=== PATIENT | female | born 1975 | race Caucasian/White ===

== ENCOUNTER 2022-01-06 20:30 | Inpatient (IN) | payer MEDICARE, OTHER ==
[~2022-01-06] VITALS: Ht 165.1 cm; Wt 75.6 kg
--- NOTE | 2022-01-06 21:45 | NUR ---
ARRIVAL TO ICU PT ARRIVED VIA EMS GURNEY. MOVED TO ICU BED. PT AWNSERS YES TO HER NAME BUT DOES NOT ANSWER ANY OTHER QUESTIONS OR FOLLOW COMMANDS. PT CONSISTANTLY MOVING SIDE TO SIDE, PULLING AT GOWN AND KUMAR. ORDER RECEIVED FROM DR CALVO FOR RESTRAINTS. KUMAR IN PLACE ON ARRIVAL. KUMAR REMOVED, NEW ONE PLACED AND SAMPLE SENT TO LAB.
[2022-01-06 22:29] LABS: Source, Urine Foley catheter
[2022-01-06 22:32] LABS: Bilirubin, Urine Neg (Neg); Blood, Urine 5+ (Neg); Glucose Qualitative, Urine 2+ (Neg); Ketones, Urine Neg (Neg); Leukocyte Esterase, Urine 3+ (Neg); Nitrite, Urine Neg (Neg); Protein, Urine 1+ (Neg); Specific Gravity, Urine 1.005 (1.003-1.022); Urobilinogen, Urine 2+ (Normal)
[2022-01-06 22:37] LABS: Appearance, Urine Hazy (Clear); Color, Urine Yellow (P-Yellow)
[2022-01-06 22:49] LABS: Bacteria Few /hpf; Squamous Epithelial Cells Few /hpf (Few)
[2022-01-06 22:50] LABS: Red Blood Cells, Urine 25-50 /hpf (0-2)
[2022-01-06 23:04] LABS: Base Excess Venous -3.1 mmol/L; Bicarbonate Venous 21.6 mmol/L (24.0-30.0); PCO2 Venous 34.7 mmHg (38-42)
[2022-01-06 23:29] LABS: BASOPHILS ABSOLUTE AUTO 0.02 K/mm3 (0.00-0.23); BASOPHILS PERCENT AUTO 0 % (0-2); EOSINOPHILS ABSOLUTE AUTO 0.02 K/mm3 (0.00-0.68); EOSINOPHILS PERCENT AUTO 0 % (0-6); Hematocrit 29.5 % (33.0-51.0); Hemoglobin 10.1 g/dL (11.5-16.0); IMMATURE GRAN ABSOLUTE AUTO 0.07 K/mm3 (0.00-0.10); IMMATURE GRAN PERCENT AUTO 1 % (0-1); LYMPHOCYTES ABSOLUTE AUTO 1.68 K/mm3 (0.84-5.20); LYMPHOCYTES PERCENT AUTO 17 % (21-46); MONOCYTES ABSOLUTE AUTO 0.66 K/mm3 (0.16-1.47); MONOCYTES PERCENT AUTO 7 % (4-13); Mean Corpuscular HGB 35.6 pg (26.0-34.0); Mean Corpuscular HGB Conc 34.2 g/dL (31.5-36.5); Mean Corpuscular Volume 104 fL (80-100); Mean Platelet Volume 12.3 fL (9.1-12.4); NEUTROPHILS ABSOLUTE AUTO 7.37 K/mm3 (1.96-9.15); NEUTROPHILS PERCENT AUTO 75 % (41-73); Platelet Count 82 K/mm3 (150-400); RDW Standard Deviation 64.3 fL (35.1-46.3); Red Blood Cell Count 2.84 M/mm3 (3.80-5.20); White Blood Cell Count 9.82 K/mm3 (4.00-11.30)
[2022-01-06 23:52] LABS: Bun/Creatinine Ratio 13.8 (12.0-20.0); Calcium, Blood 7.1 mg/dL (8.5-10.1); Creatinine, Blood 0.51 mg/dL (0.40-1.00); Potassium, Blood 3.1 mmol/L (3.5-5.5)
[2022-01-07 05:35] LABS: BASOPHILS ABSOLUTE AUTO 0.02 K/mm3 (0.00-0.23); BASOPHILS PERCENT AUTO 0 % (0-2); EOSINOPHILS ABSOLUTE AUTO 0.01 K/mm3 (0.00-0.68); EOSINOPHILS PERCENT AUTO 0 % (0-6); Hematocrit 23.6 % (33.0-51.0); Hemoglobin 8.3 g/dL (11.5-16.0); IMMATURE GRAN ABSOLUTE AUTO 0.05 K/mm3 (0.00-0.10); IMMATURE GRAN PERCENT AUTO 1 % (0-1); LYMPHOCYTES ABSOLUTE AUTO 1.59 K/mm3 (0.84-5.20); LYMPHOCYTES PERCENT AUTO 17 % (21-46); MONOCYTES ABSOLUTE AUTO 0.79 K/mm3 (0.16-1.47); MONOCYTES PERCENT AUTO 8 % (4-13); Mean Corpuscular HGB 36.1 pg (26.0-34.0); Mean Corpuscular HGB Conc 35.2 g/dL (31.5-36.5); Mean Corpuscular Volume 103 fL (80-100); Mean Platelet Volume 12.1 fL (9.1-12.4); NEUTROPHILS ABSOLUTE AUTO 7.16 K/mm3 (1.96-9.15); NEUTROPHILS PERCENT AUTO 75 % (41-73); Platelet Count 90 K/mm3 (150-400); RDW Coefficient Variation 16.7 % (11.7-14.2); RDW Standard Deviation 61.5 fL (35.1-46.3); White Blood Cell Count 9.62 K/mm3 (4.00-11.30)
--- NOTE | 2022-01-07 05:36 | NUR ---
PT INTUBATED LAB UNABLE TO GET BLOOD SAMPLE FROM PT. MULTIPLE POWERDILDE PLACEMENTS ATTEMPTED. DR SALDANA NOTIFIED OF THE NEED FOR A CENTRAL LINE. PT GIVEN MULTIPLE DOSES OF ATIVAN D/T NOT BEING ABLE TO HOLD STILL. AFTER PLACEMENT OF CENTRAL LINE, PT NOT ABLE TO PROTECT AIRWAY. DR SALDANA IN ROOM AND DECISION MADE TO INTUBATE. 0432 10MG ETOMIDATE 0433 80MG SUCCINYLCHOLINE 0433 2MG VERSED 0435 INTUBATED. 7.5-24 AT [facility]. PROPOFOL STARTED AT 20MCG/KG/MIN. PT TOLERATED WELL. OGT PLACED AND TO LIS. CHEST XRAY COMPLETED AND VERIFIED. CURRENT GTTS-NS 125ML/HR AND PROPOFOL 40MCG/KG/MIN. KUMAR IN PLACE, DRAINING DARK YELLOW URINE. 200 TOTAL OUTPUT. RECTAL TUBE IN PLACE.
[2022-01-07 06:02] LABS: Albumin, Blood 1.3 g/dL (3.4-5.0); Albumin/Globulin Ratio 0.5 (0.8-1.8); Bilirubin, Total 4.7 mg/dL (0.1-1.0); Bun/Creatinine Ratio 10.5 (12.0-20.0); Calcium, Blood 7.2 mg/dL (8.5-10.1); Creatinine, Blood 0.57 mg/dL (0.40-1.00); Globulin, Blood 2.8 g/dL (2.2-4.0); Magnesium, Blood 1.4 mg/dL (1.6-2.4); Potassium, Blood 3.3 mmol/L (3.5-5.5); Total Protein, Blood 4.1 g/dL (6.4-8.2)
--- NOTE | 2022-01-07 06:20 | NUR ---
UPDATE CALLED DAUGHTER MELINDA TO GIVE UPDATE ON PT. MELINDA UNAVAILABLE AT THIS TIME, TELEPHONE NUMBER PROVIDED TO MELINDA'S .
[2022-01-07 09:59] LABS: Bun/Creatinine Ratio 10.7 (12.0-20.0); Calcium, Blood 7.2 mg/dL (8.5-10.1); Creatinine, Blood 0.56 mg/dL (0.40-1.00); Potassium, Blood 3.6 mmol/L (3.5-5.5)
--- NOTE | 2022-01-07 11:25 | NUR ---
CARE OF PT ASSUMED AT 0700. PT SEDATED ON PROPOFOL AT 40MCG FOR MECH VENT TOLERANCE. PT RESTLESS AND PULLING ON RESTRAINTS, DOES NOT OPEN EYES OR FOLLOW COMMANDS. PT HYPOTENSIVE W MAP >65. ATIVAN 2MG TOTAL GIVEN WITHOUT REDUCTION IN AGITATION. PROPOFOL INCREASED TO 50MCG. DR CLEMONS CONSULTED AND GIVEN FULL UPDATE THIS AM. 40MEQ K+ INFUSING THIS AM, MAG AND CALCIUM GIVEN. CRITICAL PHOS GIVEN TO DR CLEMONS. KPHOS ORDERED AND STARTED; K+ RIDER ON HOLD WHILE KPHOS INFUSING. LEVOPHED STARTED AT 2MCG TO KEEP MAP >60. PRECEDEX STARTED AT 0.3MCG. NS INFUSING AT 125. PT HAS CARLOS BLOOD IN MOUTH W SMALL CLOTS. CARLOS RED BLOOD TO ETT. BLOOD TO OG STOPPED AFTER FLUSH. OGT CLAMPED. OG ADVANCED 10CM AFTER THIS AM CHEST XRAY. THIS AM'S HEPARIN HELD D/T BLEEDING. RECTAL TUBE PATENT W SMALL AMT OF LEAKING. LOW U/O. LACTULOSE CHANGED TO OGT.
[2022-01-07 13:35] LABS: International Normalized Ratio 3.49; Prothrombin Time Results 33.8 Sec (9.7-11.5)
[2022-01-07 13:37] LABS: Bun/Creatinine Ratio 9.6 (12.0-20.0); Calcium, Blood 7.1 mg/dL (8.5-10.1); Creatinine, Blood 0.63 mg/dL (0.40-1.00); Potassium, Blood 4.9 mmol/L (3.5-5.5)
--- NOTE | 2022-01-07 13:58 | NUR ---
LEVOPHED INCREASED TO 10MCG, PROPOFOL DECREASED TO 40MCG, PRECEDEX DECREASED TO 0.2MCG. 75CC U/O TOTAL. DR CLEMONS CALLED AND UPDATED. NS BOLUS ORDERED.
--- NOTE | 2022-01-07 16:20 | NUR ---
DR CLEMONS GIVEN UPDATE. ADDITIONAL LITER OF NS BOLUS ORDERED, FOLLOWED BY NS AT 125. HEPARIN DC'D. LABS ORDERED FOR 1999.
--- NOTE | 2022-01-07 18:39 | NUR ---
PROPOFOL AT 40MCG, PRECEDEX AT 0.2MCG. NO CHANGES TO VENT. BLOODY SECRETIONS CONTINUE. LEVOPHED AT 10MCG TO KEEP MAP >60. 2L TOTAL NS BOLUS GIVEN. ALBUMIN X3 GIVEN. U/O IMPROVED. LABS TO BE DRAWN AT 1999.
--- NOTE | 2022-01-07 19:00 | NUR ---
ASSUMED CARE PT INTUBATED AND SEDATED. AC/VC 16/400/5/40%. NO ASSISTED INSPIRATIONS NOTED. PROPOFOL AND PRECEDEX GTTS INFUSING FOR SEDATION. LEVOPHED GTT INSUING TO KEEP MAP GREATER THAN 65. SEE FLOWSHEET FOR TITRATIONS. OGT CLAMPED. KUMAR PATENT AND DRAINING TO GRAVITY. RECTAL TUBE IN PLACE. SEE ASSESSMENT FOR FULL ASSESSMENT.
[2022-01-07 20:59] LABS: Magnesium, Blood 1.8 mg/dL (1.6-2.4)
--- NOTE | 2022-01-07 22:00 | NUR ---
MD CALLED DURING SHIFT AEROSPACE PHYSIOLOGICAL TECHNICIAN NOTED UNEQUEL PUPILS W/ SLUGGISH RESPONSE. PT GRIMACING W/ ORAL CARE AND WITHDREW ALL EXTREMITIES TO PAIN. CHARGE NURSE CONSULTED AND DESCION MADE TO DECREASE SEDATION. PROPOFOL TITRATED DOWN TO 20MCG/KG/MIN W/ NO CHANGE IN PATIENT NEURO STATUS. PROPOFOL THEN TURNED TO SB. PT THEN BEGAN TO BREATHE OVER THE VENT, AND MOVE EXTREMITIES SPONTANEOUSLY W/ STIMULATION. DR CLEMONS NOTIFIED OF LAB LEVELS. ORDERS RECEIVED. ALSO MADE AWARE OF THE INFORMATION ABOVE. DR CLEMONS STATED HE HAD NOTED IT PREVIOUSLY AND NO NEW ORDERS AT THIS TIME. PT RESTING QUIETLY AND TOLERATING VENT W/ PROPOFOL ON SB W/O STIMULATION.
[2022-01-08 05:03] LABS: BASOPHILS ABSOLUTE AUTO 0.02 K/mm3 (0.00-0.23); BASOPHILS PERCENT AUTO 0 % (0-2); EOSINOPHILS ABSOLUTE AUTO 0.03 K/mm3 (0.00-0.68); EOSINOPHILS PERCENT AUTO 0 % (0-6); Hematocrit 21.1 % (33.0-51.0); Hemoglobin 6.8 g/dL (11.5-16.0); IMMATURE GRAN ABSOLUTE AUTO 0.04 K/mm3 (0.00-0.10); IMMATURE GRAN PERCENT AUTO 1 % (0-1); LYMPHOCYTES ABSOLUTE AUTO 1.32 K/mm3 (0.84-5.20); LYMPHOCYTES PERCENT AUTO 19 % (21-46); MONOCYTES ABSOLUTE AUTO 0.34 K/mm3 (0.16-1.47); MONOCYTES PERCENT AUTO 5 % (4-13); Mean Corpuscular HGB 34.7 pg (26.0-34.0); Mean Corpuscular HGB Conc 32.2 g/dL (31.5-36.5); Mean Platelet Volume 12.8 fL (9.1-12.4); NEUTROPHILS ABSOLUTE AUTO 5.35 K/mm3 (1.96-9.15); NEUTROPHILS PERCENT AUTO 75 % (41-73); Platelet Count 58 K/mm3 (150-400); RDW Coefficient Variation 17.8 % (11.7-14.2); RDW Standard Deviation 69.9 fL (35.1-46.3); Red Blood Cell Count 1.96 M/mm3 (3.80-5.20)
[2022-01-08 05:11] LABS: International Normalized Ratio 3.89; Prothrombin Time Results 37.4 Sec (9.7-11.5)
[2022-01-08 05:13] LABS: Mean Corpuscular Volume 108 fL (80-100)
[2022-01-08 05:14] LABS: Albumin, Blood 2.6 g/dL (3.4-5.0); Albumin/Globulin Ratio 1.3 (0.8-1.8); Bilirubin, Direct 4.4 mg/dL (0.0-0.3); Bilirubin, Indirect 1.3 mg/dL (0.1-0.7); Bilirubin, Total 5.7 mg/dL (0.1-1.0); Bun/Creatinine Ratio 8.6 (12.0-20.0); Calcium, Blood 6.5 mg/dL (8.5-10.1); Creatinine, Blood 0.58 mg/dL (0.40-1.00); Magnesium, Blood 2.1 mg/dL (1.6-2.4); Phosphorus, Blood 3.9 mg/dL (2.5-4.9); Total Protein, Blood 4.6 g/dL (6.4-8.2)
--- NOTE | 2022-01-08 06:43 | NUR ---
SHIFT SUMMARY PT REMAINS INTUBATED AND SEDATED. VENT SETTINGS UNCHANGED T/O NIGHT. SPO2 GREATER THAN 92%. LEVOPHED GTT TO KEEP MAP GREATER THAN 60. PROPOFOL GTT AND PRECEDEX GTT FOR SEDATION. SEDATION VACATION DONE THIS SHIFT. PT DID NOT OPEN EYES, FOLLOW COMMANDS OR PURPOSEFUL MOVEMENT. SEE FLOWSHEET FOR TITRATIONS. OGT CLAMPED. KUMAR PATENT AND DRAINING TO GRAVITY. [address]. RECTAL TUBE IN PLACE. DR SALDANA CALLED REGARDING H/H AND CALCIUM LEVEL. ORDERS RECEIVED.
--- NOTE | 2022-01-08 07:00 | NUR ---
ASSUME CARE: I have assumed care of this patient.
[2022-01-08 07:01] LABS: C DIFFICILE DNA NEGATIVE (Negative)
[2022-01-08 13:21] LABS: Hematocrit 25.2 % (33.0-51.0); Hemoglobin 8.4 g/dL (11.5-16.0)
--- NOTE | 2022-01-08 16:02 | NUR ---
CARDIOVERSION: 1529 - timout called; Emely, RT, RN x 2, and RT at bedside. 1531 - 2 mg versed pushed 1532 - synchronized cardioversion at 50 J with refractory aflutter in 180's 1535 - 150mg amiodarone pushed, 2mg versed pushed 1537 - 25 mcg fentanyl pushed 1539 - synchronized cardioversion at 200 J with successful conversion into sinus tachycardia
--- NOTE | 2022-01-08 19:35 | NUR ---
ASSUMED CARE OF PATIENT AT THIS TIME FROM PREVIOUS RN. ALLERGIES, LINES, PLAN OF CARE, AND PATIENT STATUS REVIEWED AT BEDSIDE. PATIENT INTUBATED AND SEDATED ON PRECEDEX AT 0.4. LEVOPHED AT 2, AND ABX INFUSING. PATIENT VSS.
--- NOTE | 2022-01-08 19:38 | NUR ---
SHIFT SUMMARY: NEURO: left pupil irregular and fixed at 5mm. right pupil sliggishly reactive. Occulocephalic and corneals intact. Pt moves all extremities in what appears to be an attempt to reposition. Does not open eyes or follow commands. Propofol stopped this AM, precedex titrated for sedation. CARDIAC: sinus rhythm to sinus ilda with precedex. Levophed at 2 for low systolic pressures. Discussed with Dr Martínez. RESPIRATORY: thin, white secretions noted. Tolerating vent well. AC/VC 16/400/35/5% GI/: rectal tube output of 1100 mls. Brantley patent and draining. Tube feeds initiated at 20 mls/hr. SKIN: petechiae noted to BUE. Excoriation to adan area.
[2022-01-09 04:50] LABS: International Normalized Ratio 3.06; Prothrombin Time Results 29.9 Sec (9.7-11.5)
[2022-01-09 05:01] LABS: Albumin, Blood 2.2 g/dL (3.4-5.0); Anion Gap 8 mmol/L (6-16); Blood Urea Nitrogen 5 mg/dL (8-24); Bun/Creatinine Ratio 8.1 (12.0-20.0); CO2, Blood 18 mmol/L (21-32); Chloride, Blood 126 mmol/L (98-108); Creatinine, Blood 0.62 mg/dL (0.40-1.00); Glomerular Filtration Rate 113 (60-); Glucose, Blood 214 mg/dL (70-99); Magnesium, Blood 1.7 mg/dL (1.6-2.4); Phosphorus, Blood 2.2 mg/dL (2.5-4.9); Potassium, Blood 3.5 mmol/L (3.5-5.5); Sodium, Blood 152 mmol/L (136-145)
[2022-01-09 06:47] LABS: BASOPHILS ABSOLUTE AUTO 0.03 K/mm3 (0.00-0.23); BASOPHILS PERCENT AUTO 0 % (0-2); EOSINOPHILS ABSOLUTE AUTO 0.04 K/mm3 (0.00-0.68); EOSINOPHILS PERCENT AUTO 1 % (0-6); Hematocrit 26.4 % (33.0-51.0); Hemoglobin 8.8 g/dL (11.5-16.0); Mean Corpuscular HGB 33.8 pg (26.0-34.0); Mean Corpuscular HGB Conc 33.3 g/dL (31.5-36.5); RDW Coefficient Variation 22.7 % (11.7-14.2); RDW Standard Deviation 83.4 fL (35.1-46.3); White Blood Cell Count 7.99 K/mm3 (4.00-11.30)
[2022-01-09 06:57] LABS: IMMATURE GRAN ABSOLUTE AUTO 0.03 K/mm3 (0.00-0.10); IMMATURE GRAN PERCENT AUTO 0 % (0-1); LYMPHOCYTES ABSOLUTE AUTO 1.09 K/mm3 (0.84-5.20); LYMPHOCYTES PERCENT AUTO 14 % (21-46); MONOCYTES ABSOLUTE AUTO 0.25 K/mm3 (0.16-1.47); MONOCYTES PERCENT AUTO 3 % (4-13); Mean Corpuscular Volume 102 fL (80-100); Mean Platelet Volume 13.7 fL (9.1-12.4); NEUTROPHILS ABSOLUTE AUTO 6.55 K/mm3 (1.96-9.15); NEUTROPHILS PERCENT AUTO 82 % (41-73)
--- NOTE | 2022-01-09 12:01 | NUR ---
REASSESSMENT PT REMAINS INTUBATED AND SEDATED WITH PRECEDEX. PRECEDEX HAD TO BE TITRATED UP AND PRN FENTANYL AND ATIVAN GIVEN PT HAS BEEN VERY RESTLESS, GRIMACING, MOVING AROUND SO MUCH IN BED THAT SHE DISLODGED HER RECTAL TUBE. SPOKE WITH DR. LLOYD AND HE GAVE OK TO INCREASE FREQUENCY OF FENTANYL TO HELP WITH PT'S AGITATION AND DISCOMFORT. FIO2 ON THE VENT HAD TO BE INCREASED THROUGHOUT THE MORNING PT WAS GETTING MORE AGITATED SHE KEPT DROPPING HER SATS TO THE MID 80S. FIO2 GOT UP TO 50%, BUT NOW WITH PT CALMER, FIO2 IS DOWN TO 40%. PT SB/SR WITH RATE IN THE UPPER 50S AND LOW 60S. BP REMAINS STABLE WITH LEVOPHED OFF. RECTAL TUBE REPLACED AFTER PT DISLODGED IT. KUMAR DRAINING DARK YELLOW URINE. SKIN PROTECTANT CREAM APPLIED TO PT'S SOLO AREA IT IS RED AND IRRITATED. BOTH PT'S ELBOWS ARE RED, BUT BLANCHABLE. TURNING PT EVERY 2 HOURS, BUT PT KEEPS WIGGLING OFF THE PILLOWS. PILLOWS ALSO PLACED BETWEEN HER LEGS TO RELIEVE PRESSURE, BUT PT QUICKLY KICKS THEM OUT OF THE WAY.
--- NOTE | 2022-01-09 15:43 | NUR ---
REASSESSMENT PT CONTINUES TO BE RESTLESS AND REQUIRING PRN MEDICATIONS TO ASSIST WITH SEDATION. HER LUNGS HAVE BEEN COARSE AT TIMES THIS AFTERNOON, BUT CLEAR WITH SUCTIONING. FIO2 AT 35% WITH SPO2 90%. LEVOPHED REMAINS OFF. CONTINUING TO MONITOR.
--- NOTE | 2022-01-09 17:17 | NUR ---
SHIFT SUMMARY PT INTUBATED AND SEDATED. PT EASILY AGITATED THIS SHIFT AND DESATS WITH SLOW RECOVERY WHEN AGITATED SO PRN MEDICATIONS USED ADJUNCT TO SEDATION. MODERATE AMT OF LEMUS/GREEN SPUTUM. FIO2 CURRENTLY AT 40%. SR/SB WITH RATE INT HE 50S AND 60S, BP STABLE WITHOUT LEVOPHED. TOLERATING TUBE FEED. RECTAL TUBE WITH ABOUT 500ML OF LIQUID STOOL. DARK YELLOW URINE IN KUMAR, SEE I/O. MULTIPLE ATTEMPTS THROUGHOUT THE DAY TO USE PILLOWS TO RELIEVE PRESSURE POINTS, BUT PT FREQUENTLY WIGGLES HERSELF OFF OF THE PILLOWS OR KICKS THEM AWAY.
--- NOTE | 2022-01-09 19:12 | NUR ---
ASSUMED CARE OF PATIENT AT THIS TIME UPDATED ON PATIENT PLAN OF CARE AND COURSE OF TREATMENT DURING DAY, ALLERGIES, LINES, AND TUBES REVIEWED AT BEDSIDE.
[2022-01-09 20:19] LABS: BASOPHILS ABSOLUTE AUTO 0.03 K/mm3 (0.00-0.23); BASOPHILS PERCENT AUTO 0 % (0-2); EOSINOPHILS ABSOLUTE AUTO 0.05 K/mm3 (0.00-0.68); EOSINOPHILS PERCENT AUTO 1 % (0-6); Hematocrit 28.6 % (33.0-51.0); Hemoglobin 9.9 g/dL (11.5-16.0); IMMATURE GRAN ABSOLUTE AUTO 0.07 K/mm3 (0.00-0.10); IMMATURE GRAN PERCENT AUTO 1 % (0-1); LYMPHOCYTES ABSOLUTE AUTO 1.28 K/mm3 (0.84-5.20); LYMPHOCYTES PERCENT AUTO 13 % (21-46); MONOCYTES ABSOLUTE AUTO 0.34 K/mm3 (0.16-1.47); MONOCYTES PERCENT AUTO 3 % (4-13); Mean Corpuscular HGB 35.2 pg (26.0-34.0); Mean Corpuscular HGB Conc 34.6 g/dL (31.5-36.5); Mean Corpuscular Volume 102 fL (80-100); NEUTROPHILS ABSOLUTE AUTO 8.43 K/mm3 (1.96-9.15); NEUTROPHILS PERCENT AUTO 83 % (41-73); RDW Coefficient Variation 22.9 % (11.7-14.2); RDW Standard Deviation 84.2 fL (35.1-46.3); Red Blood Cell Count 2.81 M/mm3 (3.80-5.20)
[2022-01-09 20:26] LABS: Platelet Count 21 K/mm3 (150-400)
[2022-01-09 20:33] LABS: Bun/Creatinine Ratio 9.1 (12.0-20.0); Creatinine, Blood 0.55 mg/dL (0.40-1.00); Magnesium, Blood 1.5 mg/dL (1.6-2.4); Potassium, Blood 4.1 mmol/L (3.5-5.5)
--- NOTE | 2022-01-09 23:07 | NUR ---
PATIENT TEMPERATURE 95.5 WITH TEMPORAL THERMOSCAN, ESOPHAGEAL PROBE INSERTED, TEMPERATURE READING 94.4. ZOFIA HUGGER APPLIED. PATIENT HAD SUDDEN DROP OF BLOOD PRESSURE, REQUIRING RESTARTING PRESSERS. HR DROPPED TO 40 AND END TITAL DROPPED TO 10. DR LLOYD NOTIFIED. ORDERS RECIEVED FOR ATROPINE, EKG, EPINEPHRINE, AND LABS. MAG AND CALCIUM LOW, BLOOD SUGAR HIGH. DR LLOYD NOTIFIED AND ORDERS RECIEVED FOR MAGNESIUM, CALCIUM, DC D5 GTT, AND VANCOMYCIN STARTED. PATIENT NOW NORMOTHERMIC.
--- NOTE | 2022-01-10 03:22 | NUR ---
CBG AT 0020 403. PREMA CABRERA NOTIFIED. ORDERS RECIEVED TO START INSULIN GTT
[2022-01-10 04:44] LABS: Albumin, Blood 1.9 g/dL (3.4-5.0); Anion Gap 13 mmol/L (6-16); Blood Urea Nitrogen 8 mg/dL (8-24); Bun/Creatinine Ratio 11.2 (12.0-20.0); CO2, Blood 14 mmol/L (21-32); Calcium, Blood 7.8 mg/dL (8.5-10.1); Chloride, Blood 124 mmol/L (98-108); Creatinine, Blood 0.71 mg/dL (0.40-1.00); Glomerular Filtration Rate 107 (60-); Glucose, Blood 355 mg/dL (70-99); International Normalized Ratio 2.51; Magnesium, Blood 1.9 mg/dL (1.6-2.4); Phosphorus, Blood 1.4 mg/dL (2.5-4.9); Potassium, Blood 3.4 mmol/L (3.5-5.5); Prothrombin Time Results 24.8 Sec (9.7-11.5); Sodium, Blood 151 mmol/L (136-145)
[2022-01-10 05:45] LABS: BASOPHILS ABSOLUTE AUTO 0.05 K/mm3 (0.00-0.23); BASOPHILS PERCENT AUTO 0 % (0-2); EOSINOPHILS ABSOLUTE AUTO 0.01 K/mm3 (0.00-0.68); EOSINOPHILS PERCENT AUTO 0 % (0-6); Hematocrit 28.5 % (33.0-51.0); Hemoglobin 9.3 g/dL (11.5-16.0); IMMATURE GRAN PERCENT AUTO 1 % (0-1); LYMPHOCYTES ABSOLUTE AUTO 1.71 K/mm3 (0.84-5.20); LYMPHOCYTES PERCENT AUTO 12 % (21-46); MONOCYTES PERCENT AUTO 4 % (4-13); Mean Corpuscular HGB 33.8 pg (26.0-34.0); Mean Corpuscular HGB Conc 32.6 g/dL (31.5-36.5); Mean Corpuscular Volume 104 fL (80-100); NEUTROPHILS ABSOLUTE AUTO 11.66 K/mm3 (1.96-9.15); NEUTROPHILS PERCENT AUTO 83 % (41-73); RDW Coefficient Variation 22.7 % (11.7-14.2); RDW Standard Deviation 85.3 fL (35.1-46.3); Red Blood Cell Count 2.75 M/mm3 (3.80-5.20); White Blood Cell Count 14.13 K/mm3 (4.00-11.30)
[2022-01-10 05:50] LABS: Mean Platelet Volume 13.8 fL (9.1-12.4); Platelet Count 33 K/mm3 (150-400)
--- NOTE | 2022-01-10 05:50 | NUR ---
AT MIDNIGHT, PATIENT BLOOD GLUCOSE 403, NOTIFIED DR LLOYD, INSULIN GTT STARTED. SWITCHED PATIENT TO EPINEPHRINE GTT BUT NOT VERY EFFECTIVE TO KEEP MAP >65. NOTIFIED DR LLOYD AND RECEIVED ORDERS TO KEEP EPI GTT AT MAX OF 5, START LEVO IF NEEDED, AND IF LEVO REACHES 12, START VASOPRESSIN. PATIENT PLATELETS 33, MD AWARE. NO ORDERS. CHEST XRAY SHOWS WORSENING PNEUMONIA. PATIENT NOT ON SEDATION. RECEIVED 2 PRN DOSES OF ATIVAN. SEE EMAR FOR MORE INFORMATION. PATIENT NOT FOLLOWING COMMANDS, KUMAR OUTPUT 200 OVERNIGHT. K+ 3.4 THIS AM, ORDERS RECEIVED FOR K+ REPLACEMENT.
--- NOTE | 2022-01-10 10:17 | NUR ---
PT INTUBATED, NO SEDATION. OPENS EYE'S ON COMMAND, LAMB ON COMMAND, AND NODS YES AND NO TO QUESTIONS. FENTANYL GIVEN PT NODS YES TO PAIN. DR. LLOYD CHANGED PEEP TO 8. TITRATING LEVOPHED AND EPI. ON INSULIN GTT. WILL BE GOING FOR CHEST CT. PT HAS MOD AMT OF GREEN SECRETIONS FROM ETT.
[2022-01-10 12:41] LABS: Vancomycin, Trough 30.3 ug/mL (5.0-10.0)
--- NOTE | 2022-01-10 12:52 | NUR ---
PT TAKEN TO CT. PROPOFOL STARTED BEFORE CT DUE TO RESTLESSNESS DESPITE USING FENTANYL AND ATIVAN. PT CAN DRAW LEGS UP IN THE BED CLOSE TO ETT. PT APPEARS MORE COMFORTABLE WITH PROPOFOL FOR SEDATION.
--- NOTE | 2022-01-10 13:43 | NUR ---
Echocardiogram completed.
--- NOTE | 2022-01-10 18:13 | NUR ---
SUMMARY PT INTUBATED AND LIGHTLY SEDATED WITH PROPOFOL. WILL OPEN EYE'S ON COMMAND AND LAMB. PT WILL MOVE SELF OFF OF PILLOWS WHEN REPOSITIONED. CAN PULL LEGS UP CLOSE TO ETT. PEEP DECREASED TO 5 AND FIO2 DOWN TO 40%. SECRETIONS FROM ETT HAVE SLOWED AND ARE YELLOW NOW INSTEAD OF GREEN. TITRATING LEVOPHED AND EPI GTT'S. INSULIN GTT OF AND NOW COVERING WITH SLIDING SCALE. DR. LLOYD WANTS GLUCOSE CHECKED Q1-2 HRS UNTIL STABLE. ETT OUT 2CM BY RT TODAY PER DR. LLOYD. CT OF CHEST DONE. NO OTHER CHANGES.
[2022-01-11 04:56] LABS: BASOPHILS ABSOLUTE AUTO 0.05 K/mm3 (0.00-0.23); BASOPHILS PERCENT AUTO 1 % (0-2); EOSINOPHILS ABSOLUTE AUTO 0.05 K/mm3 (0.00-0.68); EOSINOPHILS PERCENT AUTO 1 % (0-6); Hematocrit 24.4 % (33.0-51.0); IMMATURE GRAN ABSOLUTE AUTO 0.12 K/mm3 (0.00-0.10); IMMATURE GRAN PERCENT AUTO 1 % (0-1); LYMPHOCYTES PERCENT AUTO 16 % (21-46); MONOCYTES ABSOLUTE AUTO 1.01 K/mm3 (0.16-1.47); MONOCYTES PERCENT AUTO 11 % (4-13); Mean Corpuscular HGB 34.8 pg (26.0-34.0); Mean Corpuscular HGB Conc 32.8 g/dL (31.5-36.5); Mean Corpuscular Volume 106 fL (80-100); NEUTROPHILS ABSOLUTE AUTO 6.65 K/mm3 (1.96-9.15); NEUTROPHILS PERCENT AUTO 71 % (41-73); RDW Coefficient Variation 22.6 % (11.7-14.2); RDW Standard Deviation 87.4 fL (35.1-46.3); White Blood Cell Count 9.38 K/mm3 (4.00-11.30)
[2022-01-11 05:08] LABS: Mean Platelet Volume 13.6 fL (9.1-12.4); Platelet Count 18 K/mm3 (150-400)
[2022-01-11 05:12] LABS: Alanine Aminotransfer (ALT/SGP 25 U/L (12-78); Albumin, Blood 1.7 g/dL (3.4-5.0); Albumin/Globulin Ratio 0.8 (0.8-1.8); Alk Phos 122 U/L (50-136); Anion Gap 12 mmol/L (6-16); Aspartate Aminotrans (AST/SGOT 31 U/L (12-37); Bilirubin, Total 8.8 mg/dL (0.1-1.0); Blood Urea Nitrogen 10 mg/dL (8-24); Bun/Creatinine Ratio 11.8 (12.0-20.0); CO2, Blood 14 mmol/L (21-32); Calcium, Blood 7.6 mg/dL (8.5-10.1); Chloride, Blood 122 mmol/L (98-108); Creatinine, Blood 0.85 mg/dL (0.40-1.00); Globulin, Blood 2.2 g/dL (2.2-4.0); Glomerular Filtration Rate 87 (60-); Glucose, Blood 313 mg/dL (70-99); Potassium, Blood 4.4 mmol/L (3.5-5.5); Sodium, Blood 148 mmol/L (136-145); Total Protein, Blood 3.9 g/dL (6.4-8.2); Vancomycin, Random 19.9 ug/mL
--- NOTE | 2022-01-11 06:12 | NUR ---
SHIFT SUMMARY: NO ACUTE CHANGES THIS SHIFT. PT HAD FREQUENT EPISODES OF COUGHING AND MODERATES AMOUNT OF SECRETIONS OUT OF ETT THAT CORRESPONDED WITH PHYSIOTHERAPY. AT 0400 PT BECAME TACHYPNEIC (35-37) AND LOOKED AGGITATED R/T REPOSITIONING/ROLL; PT MEDICATED WITH FENTANYL, ATIVAN AND PROPOFOL GTT INCREASED TO 30 MCG. PT RR FINALLY SETTLED BACK TO 22-26 RANGE THAT SHE WAS ON WHEN THE SHIFT STARTED. PT REMAINS SETTLED AND NO NEW EPISODES HAVE OCCURED. PT HAD CHG BATH AND COMPLETE BED LINEN CHANGE THIS SHIFT. LOW URINE OUTPUT THIS SHIFT WITH VERY TEA COLORED URINE. RECTAL TUBE HAD 1500 ML OUTPUT THIS SHIFT. WILL CONTINUE TO MONITOR UNTIL ONCOMING RN ARRIVES.
--- NOTE | 2022-01-11 18:32 | NUR ---
JESSICA PT INTUBATED AND SEDATED WITH PROPOFOL. ON SEDATION VACATION STARTING THIS AFTERNOON. PT IS TOLERATING THE VENT OFF OF PROPOFOL, NOT WAKING COMPLETELY UP YET. WILL TRY TO OPEN EYE'S TO VOICE. GOT ONE UNIT OF PLATELETS. TITRATED OFF EPI GTT. LEVOPHED ON AT 6 STILL. SODIUM BICARB GTT ADDED TODAY. LOW GRADE FEVER, FAN ON. NO OTHER CHANGES THIS SHIFT.
[2022-01-12 05:07] LABS: Hematocrit 21.9 % (33.0-51.0); Hemoglobin 7.5 g/dL (11.5-16.0); Mean Corpuscular HGB 35.2 pg (26.0-34.0); Mean Corpuscular HGB Conc 34.2 g/dL (31.5-36.5); Mean Corpuscular Volume 103 fL (80-100); Mean Platelet Volume 11.8 fL (9.1-12.4); RDW Coefficient Variation 21.5 % (11.7-14.2); RDW Standard Deviation 79.7 fL (35.1-46.3); Red Blood Cell Count 2.13 M/mm3 (3.80-5.20); White Blood Cell Count 8.55 K/mm3 (4.00-11.30)
[2022-01-12 05:20] LABS: Platelet Count 27 K/mm3 (150-400)
[2022-01-12 05:39] LABS: Albumin, Blood 1.5 g/dL (3.4-5.0); Albumin/Globulin Ratio 0.7 (0.8-1.8); Bilirubin, Direct 8.6 mg/dL (0.0-0.3); Bilirubin, Indirect 2.1 mg/dL (0.1-0.7); Bilirubin, Total 10.7 mg/dL (0.1-1.0); Globulin, Blood 2.3 g/dL (2.2-4.0); Total Protein, Blood 3.8 g/dL (6.4-8.2)
[2022-01-12 05:48] LABS: BAND PERCENT MAN 8 % (0-8); BASOPHILS PERCENT MAN 0 % (0-2); EOSINOPHILS PERCENT MAN 0 % (0-6); LYMPHOCYTES ABSOLUTE MAN 0.94 K/mm3 (0.84-5.20); LYMPHOCYTES PERCENT MAN 11 % (21-46); METAMYELOCYTE ABSOLUTE MAN 0.08 K/mm3 (0.00-0.00); METAMYELOCYTE PERCENT MAN 1 % (0-0); MONOCYTES ABSOLUTE MAN 0.59 K/mm3 (0.16-1.47); MONOCYTES PERCENT MAN 7 % (4-13); NEUTROPHILS ABSOLUTE MAN 6.92 K/mm3 (1.96-9.15); SEG NEUTROPHILS PERCENT MAN 73 % (41-73); TOTAL CELLS COUNTED 100
--- NOTE | 2022-01-12 07:25 | NUR ---
SHIFT SUMMARY: PT IS INTUBATED AND NOT SEDATED FOR THE ENTIRETY OF THE SHIFT. VENT SETTINGS AC/VC 16/460/5.0/50%; SPO2 96< AND RR 28-33. PT LUNG SOUNDS ARE COARSE WITH SLIGHT RHONCI NOTED. PT COUGHING WITH REPOSITIONING. ORAL CAVITY BLEEDING THROUGHOUT THE SHIFT ON GUMS AND LOWER LIP; CRITICAL PLT OF 27 THIS MORNING. PT HAS BEEN SINUS TACH WITH HR 110'S, AND SBP 90-110'S; LEVO GTT 6 MCG FOR THE WHOLE SHIFT. PT HYPOACTIVE BS IN ALL FOUR QUADRANTS WITH OGT INFUSING PIVOT @ 35 MLS/HR. PT HAS A RECTAL TUBE IN PLACE THAT IS PATENT AND DRAINING TO GRAVITY. AT ABOUT 0600 THIS RN OBSERVED BLOOD/BLOOD CLOTS IN STOOL. EVA UPDATED ON CHANGE AND ORDERS FOR CBC @ 1100. PT HAS COOL EXTREMITIES; VERY EDEMATOUS IN UPPER EXTREMITIES THAT HAS PROGRESSED INTO WEEPING THIS MORNING. PT BS WERE DECREASING THROUHGOUT THIS SHIFT AND DROPPED TO THE 70'S; LLOYD NOTIFIED AND ORDERS FOR D5 INFUSING RECIEVED. PT MOST RECENT BLOOD SUGARS NOW IN THE 120'S. PT MOTHER CALLED LATE LAST NIGHT AND WAS UPDATED ON PT'S CURRENT STATUS AND ALL QUESTIONS WERE ANSWERED AT THIS TIME. BEDSIDE REPORT GIVEN TO KEVIN VILLALOBOS.
[2022-01-12 08:03] LABS: Bun/Creatinine Ratio 14.3 (12.0-20.0); Calcium, Blood 7.3 mg/dL (8.5-10.1); Creatinine, Blood 0.7 mg/dL (0.40-1.00); Potassium, Blood 4.7 mmol/L (3.5-5.5)
[2022-01-12 08:58] LABS: Magnesium, Blood 1.2 mg/dL (1.6-2.4); Phosphorus, Blood 2.4 mg/dL (2.5-4.9)
--- NOTE | 2022-01-12 09:32 | NUR ---
ASSUMED CARE PT IS INTUBATED AT 16/460/5/50%; SPO2 >92%. MAP >65. LEVOPHED AT 6MCG; PT IS OFF SEDATION. PT HAS FIXED LEFT PUPIL THAT WAS THERE FOR A FEW DAYS PER OFF GOING RN. PT GRIMACES TO NOXIOUS STIMULI. PETECHIAE/PURPURA SCATTERED T/O. OOZING FROM OLD IV'S. BLOOD NOTED IN ORAL SECRETIONS AND RECTAL TUBE. CENTRAL LINE HAS DISCOLORATION AND REDNESS AROUND INSERTION SITE. DR LLOYD AWARE PER OFFGOING RN. SIGNIFICANT EDEMA NOTED IN BUE/BLE. COARSE LUNG SOUNDS.
[2022-01-12 11:22] LABS: Hemoglobin 7.2 g/dL (11.5-16.0); Mean Corpuscular HGB 34.3 pg (26.0-34.0); Mean Corpuscular HGB Conc 32.7 g/dL (31.5-36.5); Mean Corpuscular Volume 105 fL (80-100); Mean Platelet Volume 12.9 fL (9.1-12.4); RDW Coefficient Variation 21.9 % (11.7-14.2); RDW Standard Deviation 81.2 fL (35.1-46.3); White Blood Cell Count 8.56 K/mm3 (4.00-11.30)
[2022-01-12 11:52] LABS: Vancomycin, Trough 26.8 ug/mL (5.0-10.0)
[2022-01-12 12:04] LABS: Platelet Count 23 K/mm3 (150-400)
[2022-01-12 12:22] LABS: BASOPHILS PERCENT MAN 0 % (0-2); EOSINOPHILS ABSOLUTE MAN 0.08 K/mm3 (0.00-0.68); EOSINOPHILS PERCENT MAN 1 % (0-6); LYMPHOCYTES ABSOLUTE MAN 1.62 K/mm3 (0.84-5.20); LYMPHOCYTES PERCENT MAN 19 % (21-46); MONOCYTES ABSOLUTE MAN 1.02 K/mm3 (0.16-1.47); MONOCYTES PERCENT MAN 12 % (4-13); MYELOCYTE ABSOLUTE MAN 0.25 K/mm3 (0.00-0.00); MYELOCYTE PERCENT MAN 3 % (0-0); NEUTROPHILS ABSOLUTE MAN 5.56 K/mm3 (1.96-9.15); SEG NEUTROPHILS PERCENT MAN 65 % (41-73); TOTAL CELLS COUNTED 100
--- NOTE | 2022-01-12 15:06 | NUR ---
UPDATE WARM RED AREA IN LEFT UPPER ARM NOTED. NON-BLANCHEABLE.
--- NOTE | 2022-01-12 17:04 | NUR ---
SHIFT SUMMARY PT IS INTUBATED AT 16/460/5/40% W/ SPO2 >92%; MAP >65. LEVOPHED 6MCG. MADE SMALL MOVEMENTS TO PAINFUL STIMULI THIS MORNING AND SEEMS TO BE MORE REACTIVE, ESPECIALLY W/ ORAL CARE BY THIS NOTE. 2400ML OUT PER RECTAL TUBE W/ BLOODY OUTPUT AT BEGINNING OF SHIFT AND SMALL AMOUNTS OF RANDOM CLOTS IN THE AFTERNOON. NEEDED TO SUCTION T/O DAY D/T BLEEDING FROM MOUTH. PETECHIAE SCATTERED T/O. SIGNIFICANT REDNESS AND WARMTH IN LEFT UPPER ARM (SEE CHART). LEFT PUPIL FIXED.
[2022-01-12 17:20] LABS: Hematocrit 22.8 % (33.0-51.0); Hemoglobin 7.4 g/dL (11.5-16.0)
[2022-01-13 04:32] LABS: BASOPHILS ABSOLUTE AUTO 0.02 K/mm3 (0.00-0.23); BASOPHILS PERCENT AUTO 0 % (0-2); EOSINOPHILS ABSOLUTE AUTO 0.07 K/mm3 (0.00-0.68); EOSINOPHILS PERCENT AUTO 1 % (0-6); Hematocrit 21.5 % (33.0-51.0); IMMATURE GRAN ABSOLUTE AUTO 0.29 K/mm3 (0.00-0.10); IMMATURE GRAN PERCENT AUTO 3 % (0-1); LYMPHOCYTES ABSOLUTE AUTO 2.14 K/mm3 (0.84-5.20); LYMPHOCYTES PERCENT AUTO 21 % (21-46); MONOCYTES ABSOLUTE AUTO 1.37 K/mm3 (0.16-1.47); MONOCYTES PERCENT AUTO 13 % (4-13); Mean Corpuscular HGB 34.1 pg (26.0-34.0); Mean Corpuscular HGB Conc 32.6 g/dL (31.5-36.5); Mean Corpuscular Volume 105 fL (80-100); NEUTROPHILS ABSOLUTE AUTO 6.54 K/mm3 (1.96-9.15); NEUTROPHILS PERCENT AUTO 63 % (41-73); RDW Coefficient Variation 21.6 % (11.7-14.2); RDW Standard Deviation 80.8 fL (35.1-46.3); Red Blood Cell Count 2.05 M/mm3 (3.80-5.20); White Blood Cell Count 10.43 K/mm3 (4.00-11.30)
[2022-01-13 04:48] LABS: Platelet Count 20 K/mm3 (150-400)
[2022-01-13 04:54] LABS: Alanine Aminotransfer (ALT/SGP 27 U/L (12-78); Albumin, Blood 1.3 g/dL (3.4-5.0); Albumin/Globulin Ratio 0.5 (0.8-1.8); Alk Phos 105 U/L (50-136); Anion Gap 8 mmol/L (6-16); Aspartate Aminotrans (AST/SGOT 45 U/L (12-37); Bilirubin, Direct 8.9 mg/dL (0.0-0.3); Bilirubin, Indirect 2.2 mg/dL (0.1-0.7); Bilirubin, Total 11.1 mg/dL (0.1-1.0); Blood Urea Nitrogen 11 mg/dL (8-24); CO2, Blood 19 mmol/L (21-32); Calcium, Blood 7.4 mg/dL (8.5-10.1); Chloride, Blood 121 mmol/L (98-108); Creatinine, Blood 0.79 mg/dL (0.40-1.00); Globulin, Blood 2.6 g/dL (2.2-4.0); Glomerular Filtration Rate 95 (60-); Glucose, Blood 91 mg/dL (70-99); Magnesium, Blood 1.8 mg/dL (1.6-2.4); Phosphorus, Blood 2.8 mg/dL (2.5-4.9); Sodium, Blood 148 mmol/L (136-145); Total Protein, Blood 3.9 g/dL (6.4-8.2)
--- NOTE | 2022-01-13 05:38 | NUR ---
END OF SHIFT SUMMARY START OF SHIFT PT WAS GETTING AN EEG PLACED. AFTER PLACEMENT THE INSOLE BUFFER STATED THERE WAS TOO MUCH ARTIFACT AFTER CLOSE INSPECTION NOTICED PT WAS SHIVERING. CALLED MD MARSHALL TO DICUSS ISSUE HE STATED WE WILL PARALIZE. I QUESTION THE PARALITIC BECAUSE PT IS NOT SEDATED AFTER FURTHER DISCUSSION I AGREED. FORTANTLY NO ADVERS EFFECTS NOTED AFTER 40MG DENA PUSH WE WERE ABLE TO GET EEG. PT IS CURRENTLY AT 3MCG OF LEVO AND MAP IS>65. SHE IS AT GOAL FOR TUBE FEED AND HAS RECTAL TUB IN PLACE. HER STOOLS ARE A CREAM COLOR. AFTER SPEEKING TO MOTHER FOUND OUT PT HAS HAD MUITBLE ABD SURGERYS AND MOST OF BOWEL HAS BEEN REMOVED. PT IS STILL ON SAME VENT SETTINGS. NEURO PT HAS A DIALATED AND FIX LT PUPIL AND RT IS 5 AND BRISK. PT LIPS ARE CONTINUING TO SWELL. PT ALSO HAS SYMPTOMS OF HER LOW PLATELETS SHES BEEN OZING FROM MOUTH AND IV SIGHTS. SHE HAS SCATTERED PATECIA. HER RECTAL AREA IS SIGNIFICANTLY EXCORIATED AND BLEEDING PT TURNED Q2
--- NOTE | 2022-01-13 10:23 | NUR ---
SHIFT ASSESSMENT ASSUMED CARE OF PT @ 0700. PT INTUBATED, OFF SEDATION. LEVOPHED ON SB. NOT RESPONDING TO COMMANDS, FAINTLY PULLS AWAY TO NOXIOUS STIMULI. L PUPIL FIXED, RIGHT GAZE IN BOTH EYES. VENT [id number]-06/460/35/5 c SATS >90%. TF INFUSING VIA OGT @ GOAL RATE. RECTAL TUBE DRAINING WHAT APPEARS TO BE UNDIGESTED TF. KUMAR CATH PATENT, DRAINING DARK VAISHALI URINE. WILL CONTINUE TO MONITOR CLOSELY.
--- NOTE | 2022-01-13 18:17 | NUR ---
SHIFT SUMMARY PT REMAINS INTUBATED, OFF SEDATION. NO CHANGES TO NEURO STATUS. RESTRAINTS DC'D PT NOT MOVING/ RESPONDING. VENT SETTINGS- VCA-15/400/35/5 c SATS >90%. LS REMAIN COARSE, MODERATE AMNT OF SECRETIONS VIA ETT. OGT c TF @ GOAL RATE. RECTAL TUBE DRAINING WHAT APPEARS TO BE UNDIGESTED TF. KUMAR CATH DRAINING DARK VAISHALI URINE. PT REMAINS OFF LEVOPHED. PALLIATIVE CARE FOLLOWING UP ON PATIENT, WILL CONTACT NEXT OF KIN TO UPDATE ON SEVERITY OF CONDITION. NO OTHER CHANGES NOTED. REPORT TO BE GIVEN TO ONCOMING NURSE.
--- NOTE | 2022-01-13 19:02 | NUR ---
Spoke to pt's mom Jeanine this evening. She tells me she is prepared and expecting that pt will not recover. She shared at length many of the issues the pt has experienced through the past several years. She states the pt has 2 children, one is 23 and lives with her, the pt's mom. The other is 13 and currently living with the other set of grandparents. Jeanine is the sole decision-maker for the patient. She asks to take the night to think about things; not sure if she wants to be present for terminal withdrawal, and it does appear this is the most likely scenario. The most recent CT scan shows no acute brain changes. Pt's mom will call Palliative in the morning to check in, let me know if she's feeling any different about being present for her daughter's liberation from the ventilator.
[2022-01-14 03:54] LABS: Hematocrit 22.3 % (33.0-51.0); Mean Corpuscular HGB 33.8 pg (26.0-34.0); Mean Corpuscular HGB Conc 31.4 g/dL (31.5-36.5); Mean Corpuscular Volume 108 fL (80-100); NRBC ABSOLUTE 0.07 K/mm3 (0.00-0.02); NRBC Auto 0.4 /100 WBC (0.0-0.2); RDW Coefficient Variation 21.7 % (11.7-14.2); RDW Standard Deviation 80.2 fL (35.1-46.3); Red Blood Cell Count 2.07 M/mm3 (3.80-5.20); White Blood Cell Count 17.19 K/mm3 (4.00-11.30)
[2022-01-14 04:03] LABS: Mean Platelet Volume 14.2 fL (9.1-12.4); Platelet Count 45 K/mm3 (150-400)
[2022-01-14 04:05] LABS: International Normalized Ratio 2.71; Prothrombin Time Results 26.7 Sec (9.7-11.5)
[2022-01-14 04:09] LABS: Vancomycin, Trough 33.6 ug/mL (5.0-10.0)
--- NOTE | 2022-01-14 05:02 | NUR ---
END OF SHIFT SUMMARY NO ACUTE OVER NIGHT EVENTS PT HAS REMAINED OFF LEVO AND STILL OFF SEDATION. PT LOOKED TO BE OPENING EYES AND SEEMED TO HAVE BLINKED TO COMMAND BUT HAVENT BEEN ABLE TO REPEAT THE BLINKING TO COMMANDS BUT PT HAS OPENED EYES TO VOICE WHEN REPOSITIONING. PT DID DESATURATE WHEN TURNED ON RIGHT SIDE WHEN BATHING PT SHE WENT LOW 76 QUICKLY PLACED ON BACK AND PT RECOVERED. PLATELETS ARE UP 45 PT STILL SHOWS SIGNS OF BLEEDING WHEN DOING ORAL CARE AND THER ARE SCATTERED PETICIA ON EXTREMITES AND TRUNK. WILL CONTINUE TO MONITOR AND REPORT OFF TO ONCOMING WILFREDO
[2022-01-14 05:23] LABS: Albumin, Blood 1.3 g/dL (3.4-5.0); Albumin/Globulin Ratio 0.5 (0.8-1.8); Bilirubin, Direct 7.8 mg/dL (0.0-0.3); Bilirubin, Indirect 2.3 mg/dL (0.1-0.7); Bilirubin, Total 10.1 mg/dL (0.1-1.0); Bun/Creatinine Ratio 14.2 (12.0-20.0); Calcium, Blood 7.8 mg/dL (8.5-10.1); Creatinine, Blood 0.99 mg/dL (0.40-1.00); Globulin, Blood 2.8 g/dL (2.2-4.0); Magnesium, Blood 1.6 mg/dL (1.6-2.4); Percent Saturation 113.2 % (15.0-50.0); Phosphorus, Blood 2.8 mg/dL (2.5-4.9); Potassium, Blood 4.5 mmol/L (3.5-5.5); Total Protein, Blood 4.1 g/dL (6.4-8.2)
[2022-01-14 05:41] LABS: BAND PERCENT MAN 5 % (0-8); BASOPHILS PERCENT MAN 0 % (0-2); EOSINOPHILS PERCENT MAN 0 % (0-6); LYMPHOCYTES % ATYPICAL MANUAL 1 % (0-0); LYMPHOCYTES ABSOLUTE MAN 3.78 K/mm3 (0.84-5.20); LYMPHOCYTES PERCENT MAN 21 % (21-46); MONOCYTES PERCENT MAN 7 % (4-13); MYELOCYTE ABSOLUTE MAN 0.17 K/mm3 (0.00-0.00); MYELOCYTE PERCENT MAN 1 % (0-0); NEUTROPHILS ABSOLUTE MAN 11.86 K/mm3 (1.96-9.15); PLASMA CELL ABSOLUTE MAN 0.17 K/mm3 (0.00-0.00); PLASMA CELLS PERCENT MAN 1 % (0-0); SEG NEUTROPHILS PERCENT MAN 64 % (41-73); TOTAL CELLS COUNTED 100
--- NOTE | 2022-01-14 09:42 | NUR ---
SHIFT ASSESSMENT PT REMAINS INTUBATED, OFF SEDATION. HAS BEEN OFF SEDATION FOR OVER 24 HRS. PT NOT RESPONDING TO VERBAL STIMULI, FAINTLY PULLS UP TO NOXIOUS STIMULI. PUPILS REMAIN FIXED ON LEFT, R SIDE SLOW TO RESPOND, NOT OPENING EYES. VENT [id number]-65/400/40/5 c SATS >90%, LS COARSE T/O, MOD AMNT OF SECRETIONS SUCTIONED. TF INFUSING VIA OGT @ GOAL RATE. RECTAL TUBE DRAINING WHAT APPEARS TO BE UNDIGESTED TF. VSS, REMAINS OFF OF PRESSORS.
--- NOTE | 2022-01-14 16:08 | NUR ---
Pt's mom asked about personal effects, specifically pt's cell phone last evening. Bedside RN did locate pt's purse and cell phone, and they are currently in the lock box in pt's room. Dr. Brar plans to wait at least 2 more days prior to withdrawing care, as he saw pt's eyes open, questioned if it was a spontaneous movement. He would like to be sure all medication has cleared prior to any final decisions. No other changes to pt's care plan.
--- NOTE | 2022-01-14 17:56 | NUR ---
SHIFT SUMMARY PT REMAINS INTUBATED, OFF SEDATION. VENT SETTINGS REMAIN THE SAME. NO NEURO CHANGES, DOLLS EYES, PUPILS REMAIN FIXED ON LEFT AND RESPONSIVE RIGHT. TF CONTINUES AT GOAL. RECTAL TUBE DRAINING TF. URINE OUTPUT DECREASING SUBSTANTIALLY, URINE NOW A DARK VAISHALI COLOR. NO OTHER ACUTE CHANGES NOTED. REPORT TO ONCOMING NURSE.
[2022-01-14 22:57] LABS: Vancomycin, Random 22.9 ug/mL
[2022-01-15 05:04] LABS: Hemoglobin 6.7 g/dL (11.5-16.0); Mean Corpuscular HGB 34.5 pg (26.0-34.0); Mean Corpuscular HGB Conc 31.9 g/dL (31.5-36.5); Mean Corpuscular Volume 108 fL (80-100); NRBC ABSOLUTE 0.26 K/mm3 (0.00-0.02); Platelet Count 60 K/mm3 (150-400); RDW Standard Deviation 80.1 fL (35.1-46.3); Red Blood Cell Count 1.94 M/mm3 (3.80-5.20); White Blood Cell Count 27.27 K/mm3 (4.00-11.30)
[2022-01-15 05:19] LABS: Albumin, Blood 1.2 g/dL (3.4-5.0); Anion Gap 10 mmol/L (6-16); Blood Urea Nitrogen 18 mg/dL (8-24); Bun/Creatinine Ratio 13.1 (12.0-20.0); CO2, Blood 17 mmol/L (21-32); Calcium, Blood 7.6 mg/dL (8.5-10.1); Chloride, Blood 117 mmol/L (98-108); Creatinine, Blood 1.37 mg/dL (0.40-1.00); Glomerular Filtration Rate 49 (60-); Glucose, Blood 268 mg/dL (70-99); Phosphorus, Blood 3.1 mg/dL (2.5-4.9); Potassium, Blood 4.5 mmol/L (3.5-5.5); Sodium, Blood 144 mmol/L (136-145)
[2022-01-15 05:27] LABS: International Normalized Ratio 2.57; Prothrombin Time Results 25.4 Sec (9.7-11.5)
[2022-01-15 05:35] LABS: Mean Platelet Volume 14.2 fL (9.1-12.4)
--- NOTE | 2022-01-15 06:06 | NUR ---
SHIFT SUMMARY: PT. REMAINED STABLE OVERNIGHT, COUGH AND GAG ARE PRESENT BUT NO DILATION OF PUPILS OR ANY TYPE OF PURPOSEFUL MOVEMENT, SEDATION HAS BEEN OFF X2 DAYS NOW. PT. IS STILL ON VENTILATOR, 16/400/30%/5 SATTING WELL ON THOSE SETTINGS. BPS HAVE ALL BEEN WNL AND PT. IS IN NSR ALL NIGHT. PT. HAS OG TUBE WITH TUBE FEED RUNNING AT GOAL RATE AND HAS A RECTAL TUBE THAT IS PATENT AND DRAINING STOOL THAT LOOKS SIMILAR TO TUBE FEED. PT. STILL HAS A KUMAR IN PLACE, IT IS PATENT AND DRAINING DARK VAISHALI URINE OF 120MLS OVERNIGHT. PT. STILL HAS A H&H OF 7.0 AND HOLDING. PT. IS RESTING COMFORTABLY IN BED AT THIS TIME.
[2022-01-15 07:39] LABS: BAND PERCENT MAN 2 % (0-8); BASOPHILS PERCENT MAN 0 % (0-2); EOSINOPHILS PERCENT MAN 0 % (0-6); LYMPHOCYTES ABSOLUTE MAN 8.99 K/mm3 (0.84-5.20); LYMPHOCYTES PERCENT MAN 33 % (21-46); METAMYELOCYTE ABSOLUTE MAN 0.27 K/mm3 (0.00-0.00); METAMYELOCYTE PERCENT MAN 1 % (0-0); MONOCYTES ABSOLUTE MAN 1.36 K/mm3 (0.16-1.47); MONOCYTES PERCENT MAN 5 % (4-13); MYELOCYTE ABSOLUTE MAN 1.09 K/mm3 (0.00-0.00); MYELOCYTE PERCENT MAN 4 % (0-0); NEUTROPHILS ABSOLUTE MAN 14.18 K/mm3 (1.96-9.15); PLASMA CELL ABSOLUTE MAN 1.36 K/mm3 (0.00-0.00); PLASMA CELLS PERCENT MAN 5 % (0-0); SEG NEUTROPHILS PERCENT MAN 50 % (41-73); TOTAL CELLS COUNTED 100
[2022-01-15 10:25] LABS: Vancomycin, Random 18.5 ug/mL
--- NOTE | 2022-01-15 12:43 | NUR ---
PT REMAINS INTUBATED, OFF SEDATION FOR THE LAST THREE DAYS, VENT SETTINGS 16/400/35%/5. DOLLS EYES, LEFT PUPIL FIXED CONTINUOUSLY RIGHT PUPIL SLUGGISH ON INITIAL ASSESMENT, ON 1100 ASSESSMENT THE RIGHT PUPIL WAS FIXED. TUBE FEEDING RUNNING AT GOAL RATE OF 35 ML/HR, KUMAR PATENT AND DRAINING RED COLORED URINE, OUTPUT <30ML/HR, RECTAL TUBE PATENT AND DRAINING LIQUID THAT LOOKS LIKE TUBE FEEDING, COARSE LUNG SOUNDS AUSCULTATED, CLEAR AFTER SUCTION, O2 SATS HOLDING IN THE LOW 90'S, CARDIAC RHYTHM NORMAL, RATE HOLDING IN THE 90'S, EXTREMITIES AND NECK VERY EDEMATOUS, NO OTHER CHANGES NOTED AT THIS TIME, WILL CONTINUE TO MONITOR WITH PRECEPTING RN.
[2022-01-15 14:52] LABS: Source, Urine Foley catheter
[2022-01-15 15:09] LABS: Appearance, Urine Turbid (Clear); Blood, Urine 5+ (Neg); Color, Urine Amber (P-Yellow); Glucose Qualitative, Urine Neg (Neg); Ketones, Urine 2+ (Neg); Leukocyte Esterase, Urine 3+ (Neg); Nitrite, Urine Neg (Neg); Protein, Urine 2+ (Neg); Specific Gravity, Urine 1.015 (1.003-1.022); Urobilinogen, Urine 2+ (Normal)
[2022-01-15 15:18] LABS: Bilirubin, Urine 3+ (Neg)
[2022-01-15 15:25] LABS: Bacteria Many /hpf; Calcium Oxalate Crystals Rare /hpf; Red Blood Cells, Urine 25-50 /hpf (0-2); Renal Epithelial Mod /hpf (0-Rare); Squamous Epithelial Cells Few /hpf (Few); Yeast/Fungi Urine Many /hpf
[2022-01-15 15:26] LABS: Transitional Epithelial Cells Rare /hpf (0-Rare)
--- NOTE | 2022-01-15 18:15 | NUR ---
PT REMAINS INTUBATED OFF SEDATION, TUBE FEEDING CHANGED TO VEENA FARMS PEPTIDE 1.5 AT 25ML/HR WITH A GOAL RATE OF 40ML/HR, NO CHANGES IN NEURO STATUS, VENT SETTINGS REMAIN THE SAME, SATS >90%, LUNG SOUNDS COARSE, KUMAR DRAINING TO GRAVITY, URINE OUTPUT DIMINISHING, RED-COLORED URINE, RECTAL TUBE DRAINING TF, WEEPING +3 EDEMA BUE, +3 PITTING EDEMA ON BLE, NO OTHER CHANGES NOTED.
--- NOTE | 2022-01-15 21:08 | NUR ---
OG NEEDS TO BE PULLED BACK 5CM, THEN ABLE TO USE WITHOUT NEED OF REPEAT CHEST XRAY PER DOCTOR SALDANA
--- NOTE | 2022-01-15 22:37 | NUR ---
PT. OG TUBE WAS CLOGGED UPON FIRST ASSESSMENT. OG REMOVED AND REPLACED. GASTRIC CONTENTS ASPIRATED AND AIR SOUNDS HEARD THROUGH STOMACH. X-RAY CONFIRMED AND DR. MEEK'D TO USE. TUBE FEED HOOKED BACK UP TO NEW TUBE AND ARE INFUSING CURRENTLY.
--- NOTE | 2022-01-16 03:07 | NUR ---
DOCTOR JOANNA NOTIFIED OF CONTINUED SEIZURE ACTIVITY AFTER ATIVAN 2MG IV GIVEN. FACIAL TWITCHING AND SLIGHT RHYTHMIC TWITCHING TO BOTH ARMS AND SHOULDERS. ORDER OBTAINED FOR PROPOFOL AND ATIVAN. PLAN TO REPEAT CT SCAN WHEN PATIENT STABLE.
[2022-01-16 03:47] LABS: Hematocrit 23.8 % (33.0-51.0); Hemoglobin 7.8 g/dL (11.5-16.0); Mean Corpuscular HGB 34.1 pg (26.0-34.0); Mean Corpuscular HGB Conc 32.8 g/dL (31.5-36.5); Mean Corpuscular Volume 104 fL (80-100); NRBC ABSOLUTE 0.26 K/mm3 (0.00-0.02); NRBC Auto 0.9 /100 WBC (0.0-0.2); Platelet Count 57 K/mm3 (150-400); RDW Coefficient Variation 22.5 % (11.7-14.2); RDW Standard Deviation 75.7 fL (35.1-46.3); Red Blood Cell Count 2.29 M/mm3 (3.80-5.20); White Blood Cell Count 29.03 K/mm3 (4.00-11.30)
[2022-01-16 04:07] LABS: Alanine Aminotransfer (ALT/SGP 39 U/L (12-78); Albumin, Blood 1.3 g/dL (3.4-5.0); Albumin/Globulin Ratio 0.4 (0.8-1.8); Alk Phos 109 U/L (50-136); Anion Gap 10 mmol/L (6-16); Aspartate Aminotrans (AST/SGOT 54 U/L (12-37); Bilirubin, Total 11.3 mg/dL (0.1-1.0); Blood Urea Nitrogen 21 mg/dL (8-24); CO2, Blood 17 mmol/L (21-32); Calcium, Blood 7.4 mg/dL (8.5-10.1); Chloride, Blood 112 mmol/L (98-108); Creatinine, Blood 1.62 mg/dL (0.40-1.00); Globulin, Blood 3.3 g/dL (2.2-4.0); Glomerular Filtration Rate 40 (60-); Glucose, Blood 212 mg/dL (70-99); Magnesium, Blood 1.2 mg/dL (1.6-2.4); Phosphorus, Blood 4.1 mg/dL (2.5-4.9); Potassium, Blood 5.1 mmol/L (3.5-5.5); Sodium, Blood 139 mmol/L (136-145); Total Protein, Blood 4.6 g/dL (6.4-8.2)
[2022-01-16 05:22] LABS: International Normalized Ratio 2.55; Prothrombin Time Results 25.2 Sec (9.7-11.5)
[2022-01-16 06:14] LABS: BAND PERCENT MAN 3 % (0-8); BASOPHILS ABSOLUTE MAN 0.58 K/mm3 (0.00-0.23); BASOPHILS PERCENT MAN 2 % (0-2); EOSINOPHILS PERCENT MAN 0 % (0-6); LYMPHOCYTES % ATYPICAL MANUAL 2 % (0-0); LYMPHOCYTES ABSOLUTE MAN 3.77 K/mm3 (0.84-5.20); LYMPHOCYTES PERCENT MAN 11 % (21-46); MONOCYTES ABSOLUTE MAN 1.45 K/mm3 (0.16-1.47); MONOCYTES PERCENT MAN 5 % (4-13); MYELOCYTE ABSOLUTE MAN 3.77 K/mm3 (0.00-0.00); MYELOCYTE PERCENT MAN 13 % (0-0); NEUTROPHILS ABSOLUTE MAN 19.45 K/mm3 (1.96-9.15); SEG NEUTROPHILS PERCENT MAN 64 % (41-73); TOTAL CELLS COUNTED 100
--- NOTE | 2022-01-16 06:48 | NUR ---
SHIFT SUMMARY: PT. DECLINED RAPIDLY THIS AM, AND REQUIRED AN INCREASE IN OXYGEN, BEGINNING TWO VASOPRESSORS, AND MEDICATIONS FOR SEIZURES ATIVAN PUSHES WERE NOT HELPING TO END THE SEIZURE. UPON GIVING THE SEIZURE MEDS, PT. BEGAN TO LETICIA DOWN AND HAD A PAUSE. PT. WAS STARTED ON THE SECOND PRESSOR AND GIVEN A BOLUS. FAMILY WAS CALLED AND AFTER SPEAKING WITH THEM, THEY WISH TO MAKE HER A DNR, WHICH WAS CONFIRMED BY WILFREDO BALDWIN. ORDERS WERE PUT IN TO REFLECT THESE CHANGES. PT. IS MAINTAINING A BP BUT WITH LEVO MAXED OUT AND DOPAMINE STARTED WELL. PT. FAMILY TO COME IN, MOTHER REQUESTED TO BE CALLED WITH CHANGES BUT SHE WILL NOT BE COMING IN.
[2022-01-16 07:57] LABS: PCO2 Arterial 20.1 mmHg (35-45); PO2 Arterial 65.4 mmHg (80-100); pH Blood Arterial 7.38 (7.35-7.45)
--- NOTE | 2022-01-16 12:03 | NUR ---
PT INTUBATED, SEDATED WITH PROPOFOL D/T SEIZURES. PT IS UNRESPONSIVE. PUPILS EQUAL UNREACTIVE, NO EYE MOVEMENT. SCLERAL EDEMA NOTED TO LOWER EYE'S. NO SPONTANEOUS MOVEMENT, NO COUGH OR GAG. PT IS ON DOPAMINE, LEVOPHED, AND VASOPRESSIN. TOOK PT FOR CT OF HEAD THIS AM, PER DR. MARSHALL PT HAS SWELLING OF THE BRAIN. DURING CT PT HAD EMESIS COME FROM NOSE AND AROUND OG TUBE. DOES NOT APPEAR TO HAVE ASPIRATED ANY FLUID VENT SETTINGS REMAIN THE SAME. HOLDING TUBE FEEDING FOR NOW. DR. MARSHALL HAS BEEN IN CONTACT WITH FAMILY TODAY AFTER CT AND PALLIATIVE CARE IS FOLLOWING WELL.
--- NOTE | 2022-01-16 13:11 | NUR ---
Dr. Brar spoke to pt's mom today, and gave her time to make a decision regarding comfort care. Pt's mom states to this RN in follow up phone call, she feels ready to begin comfort care for her daughter today. She ask that we call her when she expires, whether it's day or night. She states it's ok to leave a voicemail with the patient's time of if she doesn't answer the phone. Working with Magen Perales to get the pt's personal effects to her by mail, as she is not local. Bedside RN is aware and prepared to liberate this patient from the ventilator.
--- NOTE | 2022-01-16 14:15 | NUR ---
Pt's family chose [facility] in [place], [place] for home. Both pt's mom and mother in law request a call with [facility].
--- NOTE | 2022-01-16 16:30 | NUR ---
"Spiritual Care Visit | Palliative Care Request Pt. is comfort care per ICU nurse. Pt. is unresponsive. This floor cashier was called to visit the Pt. Scripture, EOL Prayers and a benediction are given. Pt. is lingering. Updated ICU nurse. home selection is unknown to the floor cashier."
--- NOTE | 2022-01-16 17:38 | NUR ---
PT MADE COMFORT CARE THIS AFTERNOON BY MOM. PT WAS EXTUBATED AT 1350 TO RA. MEDICATED WITH ATIVAN PRIOR. PT APPEARS COMFORTABLE. MOM WANTS TO BE NOTIFIED OF TOD, NO FAMILY AT BEDSIDE. PALLIATIVE CARE AND SPIRITUAL CARE HAVE BEEN BY TO SEE PT. ALL PRESSORS TURNED OFF AFTER EXTUBATION. WILL CONTINUE TO MONITOR FOR DISCOMFORT AND MEDICATE ACCORDINGLY.
--- NOTE | 2022-01-16 18:32 | NUR ---
CHANGE IN PLAN: Pt's mom called, reports she does not have money for burial, and pt also has no money or source of income. She spoke to Cindi Gerard in Palliative Care regarding this. Mom states she is planning to send pt to a local mortuary in [place], and requesting "oscar care". She also requests both she and pt's mother in law (who are both listed in contacts be called when pt passes.
--- NOTE | 2022-01-16 21:10 | NUR ---
NOTIFIED: NOTIFIED DR. OTT OF PT
--- NOTE | 2022-01-16 21:20 | NUR ---
NOTIFIED: NOTIFIED DR. FELIPE ASNWERING SERVICE OF TIME OF
--- NOTE | 2022-01-16 21:28 | NUR ---
FAMILY NOTIFIED: NOTIFIED PT'S MOTHER OF TIME OF . RISHABH (TRINIDAD) AT [phone]
--- NOTE | 2022-01-16 21:37 | NUR ---
FAMILY NOTIFIED: NOTIFIED [id number], MELINDA DE SANTIAGO, AT [phone] OF TIME OF
--- NOTE | 2022-01-16 22:30 | NUR ---
PT PICKED UP BY [facility] AT THIS TIME
[2022-01-17 08:56] LABS: Platelet Count 32 K/mm3 (150-400)
--- NOTE | 2022-01-18 17:30 | NUR ---
Pt's mom called today, she has changed her mind about sending pt's personal belongings via [employer], will come in person tomorrow 01/19 and pick up attendant her purse, cell phone from ICU. Being held in the ICU locked cupboard.
== END 2022-01-16 21:06 | DRG 870 ==
LOC: PCU 20:30 → ICUE 21:50
PROVIDERS: Family Medicine; Internal Medicine; Internal Medicine Critical Care Medicine; Student in an Organized Health Care Education/Training Program; ADMIT Family Medicine
PROC: 3E033XZ Introduction of Vasopressor into Peripheral Vein, Percutaneous Approach (ICD-10-PCS; principal; 2022-01-07)
PROC: 3E03329 Introduction of Other Anti-infective into Peripheral Vein, Percutaneous Approach (ICD-10-PCS; 2022-01-07)
PROC: 02HV33Z Insertion of Infusion Device into Superior Vena Cava, Percutaneous Approach (ICD-10-PCS; 2022-01-07)
PROC: 5A1955Z Respiratory Ventilation, Greater than 96 Consecutive Hours (ICD-10-PCS; 2022-01-07)
PROC: 0BH17EZ Insertion of Endotracheal Airway into Trachea, Via Natural or Artificial Opening (ICD-10-PCS; 2022-01-07)
PROC: 30233R1 Transfusion of Nonautologous Platelets into Peripheral Vein, Percutaneous Approach (ICD-10-PCS; 2022-01-08)
PROC: 0DH67UZ Insertion of Feeding Device into Stomach, Via Natural or Artificial Opening (ICD-10-PCS; 2022-01-08)
PROC: 30233N1 Transfusion of Nonautologous Red Blood Cells into Peripheral Vein, Percutaneous Approach (ICD-10-PCS; 2022-01-15)
DX: A41.02 Sepsis due to Methicillin resistant Staphylococcus aureus (principal); G92.8 Other toxic encephalopathy; J96.01 Acute respiratory failure with hypoxia; R65.21 Severe sepsis with septic shock; J15.0 Pneumonia due to Klebsiella pneumoniae; K70.41 Alcoholic hepatic failure with coma; N17.9 Acute kidney failure, unspecified; E72.20 Disorder of urea cycle metabolism, unspecified; E87.0 Hyperosmolality and hypernatremia; N39.0 Urinary tract infection, site not specified; F11.20 Opioid dependence, uncomplicated; E87.1 Hypo-osmolality and hyponatremia; Z66 Do not resuscitate; Z51.5 Encounter for palliative care; K70.10 Alcoholic hepatitis without ascites; F10.20 Alcohol dependence, uncomplicated; E83.42 Hypomagnesemia; K21.9 Gastro-esophageal reflux disease without esophagitis; E83.39 Other disorders of phosphorus metabolism; D63.8 Anemia in other chronic diseases classified elsewhere; F42.4 Excoriation (skin-picking) disorder; G40.409 Other generalized epilepsy and epileptic syndromes, not intractable, without status epilepticus; E11.69 Type 2 diabetes mellitus with other specified complication; E11.65 Type 2 diabetes mellitus with hyperglycemia; F17.210 Nicotine dependence, cigarettes, uncomplicated; F41.0 Panic disorder [episodic paroxysmal anxiety]; E88.09 Other disorders of plasma-protein metabolism, not elsewhere classified; D69.6 Thrombocytopenia, unspecified; E87.6 Hypokalemia; B96.89 Other specified bacterial agents as the cause of diseases classified elsewhere; Z87.19 Personal history of other diseases of the digestive system; Z86.16 Personal history of COVID-19; Z90.721 Acquired absence of ovaries, unilateral; Z79.4 Long term (current) use of insulin; Z96.659 Presence of unspecified artificial knee joint; Z86.39 Personal history of other endocrine, nutritional and metabolic disease
CPT/HCPCS: 36415; 36430; 36556; 36600; 51702; 70450; 71045; 71250; 80048; 80053; 80069; 80076; 80202; 81001; 82140; 82248; 82330; 82607; 82728; 82746; 82803; 82947; 83036; 83540; 83550; 83605; 83735; 84100; 84132; 84484; 85014; 85018; 85025; 85610; 86850; 86900; 86901; 86923; 87040; 87070; 87077; 87086; 87147; 87186; 87205; 87493; 93005; 93010; 93306; 94002; 94003; 94667; 94668; 95819; A9270; C1751; C9113; J0171; J0330; J0461; J0610; J1265; J1815; J1953; J2060; J2250; J2543; J2704; J3010; J3370; J3411; J3475; J3480; J7030; J7040; J7050; J7060; J7070; J7120; P9016; P9035; P9047; Q2009